=== PATIENT | female | born 1980 | race Caucasian/White ===

== ENCOUNTER 2024-12-04 17:07 | Emergency (ER) | payer OTHER ==
[~2024-12-04] VITALS: Ht 154.9 cm; Wt 70.3 kg
[2024-12-04 18:19] LABS: BILIRUBIN, URINE NEGATIVE (negative); BLOOD/HGB, URINE SMALL (Negative); KETONE, URINE NEGATIVE (Negative); LEUK ESTERASE, URINE NEGATIVE (negative); NITRITE, URINE NEGATIVE (negative)
[2024-12-04 18:26] LABS: EPITHELIAL CELLS, URINE SQUAMOUS 2+ /lpf (0-1+)
[2024-12-04 18:28] LABS: BACTERIA, URINE NONE SEEN /hpf (negative); CASTS, URINE NONE SEEN \\lpf; COLLECTION TYPE, URINE CLEAN CATCH; CRYSTALS, URINE NONE SEEN (0-1+); REFLEX CULTURE, URINE No (No)
[2024-12-04 19:44] LABS: BASOPHILS 0.4 % (0-2); HEMATOCRIT 41.5 % (35.0-50.0); HEMOGLOBIN 13.8 g/dL (12.0-18.0); LYMPHOCYTES 23.6 % (24-44); MCH 30.5 (27-36); MCHC 33.3 g/dl (30-36); MCV 91.8 fl (81-99); MONOCYTES 6.3 % (0-12); NEUTROPHILS 67.7 % (39-80); PLATELET COUNT 353 K/uL (140-440); RBC 4.53 M/ul (4.3-5.7); RDW 14.7 (10.5-15.0)
[2024-12-04 20:00] LABS: ALBUMIN 3.5 g/dL (3.4-5.0); ALBUMIN/GLOBULIN RATIO 0.97 (1.1-2.4); ANION GAP 9.6 (7-21); BILIRUBIN, TOTAL 0.4 ng/dL (0.2-1.0); BUN/CREATININE RATIO 16.45 (6.0-28.6); CREATININE, SERUM 0.79 mg/dL (0.55-1.02); POTASSIUM 3.6 mmol/L (3.5-5.1); PROTEIN, TOTAL 7.1 g/dL (6.4-8.2)
[2024-12-04] MEDS ORDERED: CLEOCIN HCL300 MG PO (20:36)
[2024-12-04] MEDS ORDERED: TRAMADOL HCL50 MG PO (20:41)
[2024-12-04] MEDS ORDERED: TRAMADOL HCL 50 MG HOME.PACK PO ONE (20:45)
[2024-12-04 20:55] VITALS: BP 103/61
[2024-12-04 22:12] LABS: N. GONORRRHOEAE BY PCR NOT DETECTED (NOT DETECT)
[2024-12-04] MEDS ORDERED: IBU600 MG PO (22:40)
== END 2024-12-04 20:55 | disposition home or self-care (01) ==
LOC: ED 17:07
PROVIDERS: Emergency Medicine; Family Medicine
DX: R10.2 Pelvic and perineal pain (principal); Z98.890 Other specified postprocedural states; Z88.0 Allergy status to penicillin
CPT/HCPCS: 36415; 76830; 76856; 80053; 81001; 85025; 99284-25; A9270

== ENCOUNTER 2025-03-29 15:01 | Emergency (ER) | payer OTHER ==
[~2025-03-29] VITALS: Ht 154.9 cm; Wt 68.7 kg
[~2025-03-29 15:01] MED LIST: CLEOCIN HCL300 MG PO; IBU600 MG PO; TRAMADOL HCL50 MG PO
[2025-03-29 16:10] VITALS: BP 104/74
== END 2025-03-29 16:10 | disposition home or self-care (01) ==
LOC: ED 15:01
DX: J98.9 Respiratory disorder, unspecified (principal); Z91.030 Bee allergy status; Z91.018 Allergy to other foods; Z88.0 Allergy status to penicillin; Z88.8 Allergy status to other drugs, medicaments and biological substances
CPT/HCPCS: 99283

== ENCOUNTER 2025-04-16 14:54 | Emergency (ER) | payer OTHER ==
[~2025-04-16] VITALS: Ht 154.9 cm; Wt 70.9 kg
--- OUTSIDE RECORDS SUMMARY | 2025-04-16 15:01 | XMS ---
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 EAkiko VISIT COUNT (12 MO.) [address] [place] [address] TOTAL 3 NOTE: Visits indicate total known visits. ED/UCC VISIT TRACKING (12 MO.) 04/16/2025 14:55 [facility] [place] TYPE: Emergency COMPLAINT: - GREASE JAMESON 03/29/2025 15:01 [facility] [place] TYPE: Emergency COMPLAINT: - CHEST PRESSURE/COLD SYMPTOMS DIAGNOSES: - Acute pharyngitis, unspecified - Allergy status to other drugs, medicaments and biological substances - Allergy status to penicillin - Allergy to other foods - Bee allergy status - Respiratory disorder, unspecified 12/04/2024 17:07 [facility] [place] TYPE: Emergency COMPLAINT: - POSS INFECTION DIAGNOSES: - Allergy status to penicillin - Other specified postprocedural states - Pelvic and perineal pain INPATIENT VISIT TRACKING (12 MO.) No inpatient visits to display in this time frame [email or web address]
[2025-04-16] MEDS ORDERED: TETRACAINE HCL 0.5% 4 ML BTL OS SCH (17:00)
[2025-04-16] MEDS ORDERED: FLUORESCEIN SOD 1 EA STRP OS ONE (17:00)
[2025-04-16] MEDS ORDERED: ERYTHROMYCIN1 GM OS (17:41)
[2025-04-16] MEDS ORDERED: ERYTHROMYCIN 1 GM TUBE OS ONE (18:15)
[2025-04-16 18:19] VITALS: BP 133/80
== END 2025-04-16 18:20 | disposition home or self-care (01) ==
LOC: ED 14:54
DX: T20.27XA Burn of second degree of neck, initial encounter (principal); T22.212A Burn of second degree of left forearm, initial encounter; T23.202A Burn of second degree of left hand, unspecified site, initial encounter; T26.02XA Burn of left eyelid and periocular area, initial encounter; Z91.030 Bee allergy status; Z91.018 Allergy to other foods; Z88.0 Allergy status to penicillin; Z88.8 Allergy status to other drugs, medicaments and biological substances
CPT/HCPCS: 99283